=== PATIENT | female | born 1990 | race Caucasian/White ===

== ENCOUNTER 2019-07-09 16:08 | Outpatient (CLI) | payer MEDICAID ==
[~2019-07-09] VITALS: Ht 154.9 cm; Wt 86.5 kg
[~2019-07-09 16:08] MED LIST: PRENAT PO
[2019-07-09 16:49] VITALS: Ht 154.9 cm; Wt 86.5 kg
== END 2019-07-09 23:43 | disposition home or self-care (01) ==
LOC: OBT 16:08 → L-D 16:11 → OBT 23:43
PROVIDERS: ATTEND Obstetrics & Gynecology
DX: O47.1 False labor at or after 37 completed weeks of gestation (principal); Z3A.37 37 weeks gestation of pregnancy; O41.03X0 Oligohydramnios, third trimester, not applicable or unspecified; O26.893 Other specified pregnancy related conditions, third trimester; R30.0 Dysuria
CPT/HCPCS: 76818; 81003; 87086; Z7500; G0463

== ENCOUNTER 2019-07-22 22:27 | Outpatient (CLI) | payer MEDICAID ==
[~2019-07-22] VITALS: Ht 154.9 cm; Wt 87.9 kg
[2019-07-22 23:31] VITALS: Ht 154.9 cm; Wt 87.9 kg
[2019-07-22 23:32] VITALS: BP 101/56; PULSE 99; RESP 18
== END 2019-07-23 03:15 | disposition home or self-care (01) ==
LOC: OBT 22:27 → L-D 22:28 → OBT 07-23 03:15
PROVIDERS: ATTEND Obstetrics & Gynecology
DX: O62.9 Abnormality of forces of labor, unspecified (principal); Z3A.38 38 weeks gestation of pregnancy
CPT/HCPCS: 76815; 76818; 81003; Z7500; G0463

== ENCOUNTER 2019-07-28 05:33 | Inpatient (IN) | payer MEDICAID ==
[~2019-07-28] VITALS: Ht 154.9 cm; Wt 88.5 kg
[2019-07-28] MEDS ORDERED: LACTATED RINGER'S 1,000 ML IV SCH (05:58)
[2019-07-28] MEDS ORDERED: LACTATED RINGER'S 1,000 ML IV PRN (05:58)
[2019-07-28 06:00] VITALS: BP 127/78; PULSE 83; RESP 18
[2019-07-28] MEDS ORDERED: MISOPROSTOL 200 MCG TAB PR PRN ×2 (06:00→11:00)
[2019-07-28] MEDS ORDERED: OXYTOCIN 30 UNITS/LR 500 ML IV SCH ×2 (06:00)
[2019-07-28] MEDS ORDERED: MINERAL OIL LIGHT 10 ML VIAL TOP ONE (06:00)
[2019-07-28] MEDS ORDERED: BUTORPHANOL 2 MG INJ IV PRN ×2 (06:00)
[2019-07-28] MEDS ORDERED: OXYTOCIN 30 UNITS/LR 500 ML IV PRN ×2 (06:00→11:00)
[2019-07-28] MEDS ORDERED: IBUPROFEN 600 MG TAB PO PRN (06:00)
[2019-07-28] MEDS ORDERED: LIDOCAINE 1% (MPF) 30 ML INJ INJ PRN (06:00)
[2019-07-28] MEDS ORDERED: CARBOPROST 250 MCG INJ IM PRN ×2 (06:00→11:00)
[2019-07-28] MEDS ORDERED: METHYLERGONOVINE 0.2 MG INJ IM PRN ×2 (06:00→11:00)
[2019-07-28] MEDS ORDERED: FENTAnyl 2MCG/ML-ROPIV 0.2% 100 ML ONE (06:26)
[2019-07-28] MEDS ORDERED: NALOXONE (0.4 MG/ML) INJ IV PRN (07:30)
[2019-07-28] MEDS ORDERED: ONDANSETRON 4 MG INJ IV PRN ×2 (07:30→11:00)
[2019-07-28] MEDS ORDERED: DIPHENHYDRAMINE 50 MG INJ IV PRN ×2 (07:30→11:00)
[2019-07-28] MEDS ORDERED: FENTAnyl 2MCG/ML-ROPIV 0.2% 100 ML BAG EPI SCH (07:30)
[2019-07-28] MEDS ORDERED: LACTATED RINGER'S 1,000 ML IV* SCH (10:51)
[2019-07-28] MEDS ORDERED: DEXTROSE 5%-LR 1,000 ML IV SCH (10:51)
[2019-07-28] MEDS ORDERED: ACETAMINOPHEN 325 MG TAB PO PRN (11:00)
[2019-07-28] MEDS ORDERED: WITCH HAZEL/GLYCERIN PAD PR PRN (11:00)
[2019-07-28] MEDS ORDERED: LANOLIN HPA 1 PKT TOP PRN (11:00)
[2019-07-28] MEDS ORDERED: SENNA/DOCUSATE NA (8.6MG/50MG) TAB PO PRN (11:00)
[2019-07-28] MEDS ORDERED: BENZOCAINE 20% 56 ML SPRAY TOP PRN (11:00)
[2019-07-28] MEDS ORDERED: ZOLPIDEM 5 MG TAB PO PRN (11:00)
[2019-07-28] MEDS ORDERED: DIBUCAINE 1% 30 GM OINT TOP PRN (11:00)
[2019-07-28 11:02] VITALS: BP 118/77; PULSE 63; RESP 16
[2019-07-28] MEDS: IBUPROFEN 600 MG TAB PO SCH ×2 (11:21→17:33)
[2019-07-28] MEDS: OXYCODONE/ASPIRIN (4.88/325) TAB PO PRN (13:11)
[2019-07-28 16:00] VITALS: BP 105/61; PULSE 87; RESP 18
[2019-07-28 20:00] VITALS: BP 99/57; PULSE 71; RESP 18
[2019-07-29 00:15] VITALS: BP 101/59; PULSE 79; RESP 18
[2019-07-29] MEDS: IBUPROFEN 600 MG TAB PO SCH ×4 (00:27→18:03)
[2019-07-29 04:05] VITALS: BP 95/58; RESP 16
[2019-07-29 08:20] VITALS: BP 126/84; PULSE 89; RESP 18
[2019-07-29 11:55] VITALS: BP 107/67; PULSE 83; RESP 17
[2019-07-29] MEDS: OXYCODONE/ASPIRIN (4.88/325) TAB PO PRN (16:10)
[2019-07-29 16:11] VITALS: BP 106/68; PULSE 82; RESP 16
[2019-07-29 20:15] VITALS: BP 105/63; PULSE 76; RESP 18
[2019-07-30] MEDS: IBUPROFEN 600 MG TAB PO SCH ×3 (00:08→12:35)
[2019-07-30 04:30] VITALS: BP_SYST 103; BP_SYST 126; BP_DIAS 60; BP_DIAS 71; PULSE 74; PULSE 87; RESP 18
[2019-07-30 08:50] VITALS: BP 109/62; PULSE 68; RESP 16
[2019-07-30] MEDS ORDERED: DIPHTH/TET/ACEL PERTUSS (ADULT) 0.5 ML VIAL IM* ONE (09:00)
[2019-07-30] MEDS ORDERED: MEASLES,MUMPS,RUBELLA VACCINE INJ SC* ONE (09:00)
== END 2019-07-30 14:36 | disposition home or self-care (01) | DRG 807 ==
LOC: OBT 05:33 → L-D 05:33 → OBT 05:44 → L-D 05:54 → PP1 10:28
PROVIDERS: ADMIT Obstetrics & Gynecology; ATTEND Obstetrics & Gynecology
PROC: 10E0XZZ Delivery of Products of Conception, External Approach (ICD-10-PCS; principal; 2019-07-28)
PROC: 10907ZC Drainage of Amniotic Fluid, Therapeutic from Products of Conception, Via Natural or Artificial Opening (ICD-10-PCS; 2019-07-28)
PROC: 0HQ9XZZ Repair Perineum Skin, External Approach (ICD-10-PCS; 2019-07-28)
DX: O70.0 First degree perineal laceration during delivery (principal); Z37.0 Single live birth; Z3A.39 39 weeks gestation of pregnancy
CPT/HCPCS: 62322; 85025; 85610; 85730; 86592; 86850; 86900; 86901; 87340; G0463; J2590; J3010; J7120; J7121